=== PATIENT | male | born 1960 | race Caucasian/White ===

== ENCOUNTER → 2019-02-06 | Outpatient (CLI) | payer OTHER ==
--- NOTE | 2019-02-08 13:18 | SLE ---
[facility] [place] [address] POLYSOMNOGRAPHY STUDY Name: GEGE SMILEY Room #: REG [facility].#: [id number] Admission: 02/06/19 ������������������ Attend Phys: Ulises Henry MD Discharge: ������������������ Date of : 64 Report #: [id number] THIS REPORT FOR: //name// CC: Ulises Henry FAM unknown Daron Lazcano MD DATE OF SERVICE: 02/06/2019 ATTENDING PHYSICIAN: Dr. Daron Lazcano. The patient is a 58-year-old who weighs 245 pounds with a BMI of 34.2. The patient's [place] score was 15 out of a maximum of 24. The patient had a previous home sleep study and was found to have severe ELHAM at an AHI of 39 per hour along with severe nocturnal hypoxia. The patient was referred for in-lab CPAP titration study. During the night study, the patient spent 512 minutes in bed and slept for 492 minutes with a sleep efficiency of 95%, which is normal. Sleep latency was zero minutes with a REM latency of 62 minutes, which is short. Overall, sleep architecture showed normal stage 1 sleep, increased stage 2 sleep, reduced N3 sleep and normal REM sleep. EKG monitoring revealed an average heart rate of 62 beats per minute. No sustained arrhythmias observed. Occasional PVCs seen. PLMS were seen at an index of 85 per hour, but only 1.7 per hour caused EEG arousals. The patient was started on CPAP at a pressure of 5 cm water and titrated up to 13 cm water. At the final pressure, the patient slept for 138 minutes. The patient had 45 minutes of REM sleep. The patient had supine sleep as well. The patient's AHI was reduced to 2.2 per hour and oxygen saturation remained above 93%. IMPRESSION: 1. Severe sleep apnea diagnosed by home sleep study. 2. 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 This does not need to be treated unless the patient has symptoms of restless legs during the day. RECOMMENDATIONS: 1. CPAP at 13 cm water completely eliminated the patient's sleep apnea and should be used on a nightly basis. 2. Follow up in 4-6 weeks to assess compliance and to document clinical improvement. 3. Weight loss is strongly advised. [facility] [address] [place] [address] POLYSOMNOGRAPHY STUDY Name: GEGE SMILEY Room #: REG [facility].#: [id number] Admission: 02/06/19 ������������������ Attend Phys: Ulises Henry MD Discharge: ������������������ Date of : 64 Report #: [id number] 4. Avoid [employer] depressants. 5. Caution regarding driving until symptoms of sleep apnea resolve with the use of CPAP. ��������������������������������������������� <ELECTRONICALLY SIGNED> ���������������������������������������� By: Ulises Henry MD ��������������������������������������������� 02/08/19 1318 0937 [id number] Ulises Henry MD /nt
== END ==
LOC: SLEEPLAB 02-05 15:20
DX: G47.33 Obstructive sleep apnea (adult) (pediatric) (principal); G47.61 Periodic limb movement disorder; Z88.5 Allergy status to narcotic agent

== ENCOUNTER → 2021-09-30 | Outpatient (CLI) | payer BC | LOC: SJCVCIMAG 07:40 | PROVIDERS: ATTEND Internal Medicine Cardiovascular Disease | DX: I34.0 Nonrheumatic mitral (valve) insufficiency (principal); I42.8 Other cardiomyopathies; I10 Essential (primary) hypertension; E78.00 Pure hypercholesterolemia, unspecified; G47.33 Obstructive sleep apnea (adult) (pediatric); E78.1 Pure hyperglyceridemia; Z99.89 Dependence on other enabling machines and devices; Z98.890 Other specified postprocedural states; Z79.82 Long term (current) use of aspirin; Z79.899 Other long term (current) drug therapy; Z87.891 Personal history of nicotine dependence; Z72.89 Other problems related to lifestyle; Z88.8 Allergy status to other drugs, medicaments and biological substances ==